=== PATIENT | female | born 1940 | race Hispanic/Latino ===

== ENCOUNTER 2017-09-04 14:31 | Emergency (ER) | payer MEDICARE ==
--- NOTE | 2017-09-04 16:16 | XRay Report ---
AP CHEST :09/04/17 15:54 CLINICAL: Shortness of breath. COMPARISON:None. FINDINGS: Normal heart and pulmonary vasculature. Multilobar relatively symmetric diffuse bilateral reticular interstitial opacities. No pulmonary consolidation. No pleural effusion. No mass or nodule. The bones and soft tissues are normal. 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
[2017-09-04 16:34] LABS: Anion Gap 15 mmol/L; BUN/Creatinine Ratio 14; Blood Urea Nitrogen 11 mg/dL (7-17); Calcium 8.8 mg/dL (8.4-10.2); Carbon Dioxide 34 mmol/L (22-30); Chloride 98.5 mmol/L (98-107); Glucose 91 mg/dL (65-100); Potassium 5.2 mmol/L (3.6-5.0); Sodium 142 mmol/L (137-145)
[2017-09-04] MEDS ORDERED: PROVENTIL IH ONE (16:44)
[2017-09-04] MEDS ORDERED: ATROVENT IH ONE (16:48)
[2017-09-04 16:49] LABS: Basophils % (Auto) 0.7 % (0.0-1.8); Eosinophils % (Auto) 4.1 % (0.0-4.3); Hematocrit 34.1 % (30.3-42.9); Hemoglobin 10.8 gm/dl (10.1-14.3); Mean Corpuscular HGB Conc 32 % (30-34); Mean Corpuscular Hemoglobin 26 pg (28-32); Mean Corpuscular Volume 83 fl (79-97); Platelet Count 204 K/mm3 (140-440); Red Blood Count 4.14 M/mm3 (3.65-5.03); Red Cell Distribution Width 18.2 % (13.2-15.2); White Blood Count 6.5 K/mm3 (4.5-11.0)
[2017-09-04] MEDS ORDERED: ROCEPHIN 500 MG in NACL 0.9% 50 ML IV STA (16:50)
[2017-09-04] MEDS ORDERED: XYLOCAINE 1% MPF 5 mL INFILTRATI ONE (16:50)
--- NOTE | 2017-09-04 16:58 | Emergency Department Report ---
ED Shortness of Breath HPI - General Chief Complaint: Dyspnea/Respdistress Stated Complaint: SOB Time Seen by Provider: 09/04/17 16:19 Source: patient, EMS Mode of arrival: Stretcher Limitations: No Limitations - History of Present Illness Initial Comments: Pt is a 76 yo female here with cough and sob. pt also stated she was feeling flu -like. Pt states she has not had any recent travel and noted that the usual swelling in her legs is down. Pt states she is concerned that her potassium may be a little high as she stated that she has cut down on her torsemide and her potassium but not sure how much. Pt denied any chest pain or fever. Pt states she is currently being treated for pleurisy and has a history of bronchitis. Pt states she needs more of her Albuterol Inh. Pt also states she just moved her about a month ago and has no doctor here. MD Complaint: shortness of breath -: days(s) (2) Consistency: intermittent Worsens With: exertion, coughing Associated Symptoms: cough - Related Data Home Oxygen Therapy: Yes Home Oxygen Amount: 2 Liters Allergies Allergy/AdvReac Type Severity Reaction Status Date / Time No Known Allergies Allergy Unverified 09/04/17 15:43 ED Review of Systems ROS: Stated complaint: SOB Other details as noted in HPI Comment: All other systems reviewed and negative Eyes: denies: eye pain, eye discharge, vision change ENT: ear pain Respiratory: cough, shortness of breath, wheezing Cardiovascular: denies: edema Endocrine: no symptoms reported Gastrointestinal: denies: abdominal pain, nausea, diarrhea Genitourinary: denies: urgency, dysuria, discharge Skin: denies: rash, lesions Neurological: denies: headache, weakness, paresthesias Psychiatric: denies: anxiety, depression ED Past Medical Hx - Past Medical History Previous Medical History?: Yes Hx Congestive Heart Failure: Yes Hx COPD: Yes Additional medical history: hypothyroid. chronic back pain. fx clavical - Surgical History Past Surgical History?: Yes Additional Surgical History: right carotid. left shoulder. back - Social History Smoking Status: Never Smoker Substance Use Type: None ED Physical Exam - General Limitations: No Limitations General appearance: alert, in no apparent distress - Head Head exam: Present: atraumatic, normocephalic - Eye Eye exam: Present: normal appearance, PERRL, EOMI - ENT ENT exam: Present: normal exam - Respiratory Respiratory exam: Present: normal lung sounds bilaterally - Cardiovascular Cardiovascular Exam: Present: regular rate, normal rhythm, normal heart sounds - GI/Abdominal GI/Abdominal exam: Present: soft. Absent: distended, tenderness, guarding - External exam: Present: normal external exam - Extremities Exam Extremities exam: Present: normal inspection. Absent: pedal edema - Back Exam Back exam: Present: normal inspection - Neurological Exam Neurological exam: Present: alert, oriented X3 - Skin Skin exam: Present: warm, dry, intact ED Course Vital Signs 09/04/17 09/04/17 09/04/17 15:39 15:43 15:45 Temperature 98.9 F Pulse Rate 60 Respiratory 20 Rate Blood Pressure 130/46 130/46 O2 Sat by Pulse 94 97 99 Oximetry 09/04/17 09/04/17 09/04/17 16:00 16:15 16:31 Temperature Pulse Rate 64 60 69 Respiratory 12 15 14 Rate Blood Pressure 145/49 145/49 145/49 O2 Sat by Pulse 93 97 94 Oximetry 09/04/17 09/04/17 09/04/17 16:45 17:01 18:35 Temperature Pulse Rate 63 67 Respiratory 10 L 11 L 20 Rate Blood Pressure 145/49 138/50 O2 Sat by Pulse 98 96 97 Oximetry 09/04/17 09/04/17 09/04/17 19:00 19:15 19:31 Temperature Pulse Rate 88 90 88 Respiratory 16 18 16 Rate Blood Pressure 126/41 126/41 126/41 O2 Sat by Pulse 88 89 91 Oximetry 09/04/17 09/04/17 09/04/17 19:45 19:59 20:00 Temperature 99.0 F Pulse Rate 89 89 Respiratory 24 Rate Blood Pressure 126/41 O2 Sat by Pulse 91 Oximetry - Reevaluation(s) Reevaluation #1: 09/04/17 21:33 2120 Pt states she has been feeling better after nebs. ED Medical Decision Making - Lab Data Result diagrams: 09/04/17 16:03 09/04/17 16:03 Critical care attestation.: If time is entered above; I have spent that time in minutes in the direct care of this critically ill patient, excluding procedure time. ED Disposition Clinical Impression: Bronchitis Disposition: DC-01 TO HOME OR SELFCARE Is pt being admited?: No Condition: Stable Instructions: Chronic Bronchitis (ED) Referrals: PRIMARY CARE, [Primary Care Provider] - 3-5 Days Time of Disposition: 20:20
[2017-09-04] MEDS ORDERED: ZITHROMAX 500 MG in NACL 0.9% 250ML 250 ML IV ONE (18:00)
[2017-09-04] MEDS ORDERED: cefTRIAXone 0.5 GM in NACL 0.9% 20 ML IV ONE (18:30)
--- NOTE | 2017-09-04 18:49 | Cat Scan Report ---
FINAL REPORT PROCEDURE: CT CHEST W CON TECHNIQUE: Computerized axial tomographic angiography of the chest and pulmonary arteries was performed during the IV injection of iodinated nonionic contrast. The image data was postprocessed using maximum intensity projection (MIP) and 2-dimensional multiplanar reformatted (MPR) techniques. The examination is specifically tailored to the evaluation of the pulmonary arteries per clinical request. HISTORY: Short of breath 786.09, chest pain 786.50, Dyspnea COMPARISON: No prior studies are available for comparison. FINDINGS: Pulmonary outflow tract, right and left main pulmonary arteries and their proximal branches: Pulmonary artery suboptimally visualized although no gross abnormality is seen. Pericardium: No evidence of pericardial effusion. Thoracic aorta: No evidence of aneurysmal dilatation or dissection. Coronary arteries: Are partially calcified indicating atherosclerotic disease. Mediastinum and hilar regions: Nonspecific subcentimeter lymph nodes are visualized. No pathologically enlarged lymph nodes or masses are identified. Lung Moran: Pulmonary parenchyma suboptimally seen due to significant breathing motion artifact. Emphysematous changes moderate in severity appear to be present in the upper lung moran and to a lesser degree lower lung moran. Interstitial markings appear diffusely coarsened suggesting mild fibrosis. There appears to be a dependent atelectasis. Calcified granuloma seen in the left upper lobe anteriorly medially. Small patchy alveolar density is present in the left upper lobe image 40 series 3 axial image. This does not appear to be densely consolidated. This could represent an area of atelectasis, subsegmental infiltrate or an area fibrosis. No effusions are identified. Upper abdomen: No acute abnormalities are seen. A calcified granuloma is visualized in the spleen which is otherwise unremarkable. Other: Mild upper thoracic scoliosis visualized. No acute bony abnormalities are identified. IMPRESSION: Emphysematous changes and fibrosis appear to be present as described although suboptimally visualized due to breathing motion artifact.. Small asymmetric alveolar density present left upper lobe as described above. Recommend follow-up exam in 1 month to ensure this resolves and there are no underlying nodules present. Atherosclerosis coronary arteries. .
[2017-09-04 22:51] VITALS: BP 113/46
== END 2017-09-04 22:52 | disposition home or self-care (01) ==
LOC: ED 14:31
DX: J40 Bronchitis, not specified as acute or chronic (principal); I50.9 Heart failure, unspecified; G89.29 Other chronic pain; J44.9 Chronic obstructive pulmonary disease, unspecified
CPT/HCPCS: 36415; 71010; 71260; 80048; 84484; 85025; 85379; 87040; 93005; 93010; 96365; 96375; 99285; J0456; J0696; J2930; J7050; Q9967

== ENCOUNTER 2018-06-23 06:04 | Emergency (ER) | payer MEDICARE | END 2018-06-23 06:30 | LOC: ED 06:04 | DX: I46.9 Cardiac arrest, cause unspecified (principal) | CPT/HCPCS: 92950 ==